=== PATIENT | male | born 1985 | race Two or more races ===

== ENCOUNTER 2018-01-08 20:22 | Emergency (ER) | payer SELFPAY ==
[2018-01-08 20:26] VITALS: BP 141/89; PULSE 85; RESP 18; TEMP 98; O2SAT 100
[2018-01-08] MEDS ORDERED: Naproxen 500 MG TAB PO STA (20:30)
--- NOTE | 2018-01-08 20:37 | ED PDOC ---
Upper Extremity Pain/Injury Time Seen by Provider: 01/08/18 20:28 Chief Complaint (Nursing): Upper Extremity Problem/Injury Chief Complaint (Provider): LEFT shoulder pain History Per: Patient History/Exam Limitations: no limitations Onset/Duration Of Symptoms: Sudden Onset (just prior to arrival) Current Symptoms Are (Timing): Still Present Additional Complaint(s): Started after his brother jumped on top of him while he was trying to tie his shoes H/o of RIGHT shoulder dislocations in the past, but never LEFT shoulder. Past Medical History Reviewed: Historical Data, Nursing Documentation, Vital Signs Vital Signs: Last Vital Signs Temp 98 F 01/08/18 20:24 Pulse 85 01/08/18 20:24 Resp 18 01/08/18 20:24 BP 141/89 01/08/18 20:24 Pulse Ox 100 01/08/18 20:24 - Medical History PMH: No Chronic Diseases - Surgical History Other surgeries: RIGHT shoulder surgeries for multiple injury/dislocations - Family History Family History: States: Unknown Family Hx - Allergies Allergies/Adverse Reactions: Allergies Allergy/AdvReac Type Severity Reaction Status Date / Time No Known Allergies Allergy Verified 01/08/18 20:24 Review of Systems Constitutional: Negative for: Weakness, Malaise Musculoskeletal: Positive for: Shoulder Pain. Negative for: Back Pain, Hand Pain Skin: Negative for: Bruising Neurological: Negative for: Weakness, Numbness, Headache Physical Exam - Reviewed Nursing Documentation Reviewed: Yes Vital Signs Reviewed: Yes - Physical Exam Appears: Positive for: Uncomfortable, In Acute Distress Head Exam: Positive for: ATRAUMATIC, NORMOCEPHALIC Skin: Positive for: Warm, Dry Extremity: Positive for: Other (LEFT shoulder: loss of bony marking of shoulder with ttp, shoulder resting inferiorly c/w RIGHT shoulder, no deltoid anesthesia) Neurologic/Psych: Positive for: Alert, Oriented. Negative for: Motor/Sensory Deficits - ECG O2 Sat by Pulse Oximetry: 100 - Progress Condition: Improved Procedures - Joint Reduction Joint Reduction Site: shoulder (L) Conscious Sedation: No Reduction Attempts: 1 Pre-Procedure NV Exam: Yes Post Joint Reduction Film: joint reduced Progress: Modified milch maneuver performed with audible click Pt with FROM after procedure and neurovascularly intact Advised shoulder immobilizer but pt refused. Disposition - Clinical Impression Clinical Impression: Shoulder dislocation Counseled Patient/Family Regarding: Diagnosis, Need For Followup - Disposition Referrals: Javier Stearns MD [Staff Provider] - Disposition: Routine/Home Disposition Time: 20:36 Condition: IMPROVED Additional Instructions: Maintain immobilizer until you follow up with orthopedist Avoid any strenuous activity with left extremity until you follow up. Follow up with Orthopedist within a week. Instructions: Shoulder Dislocation
[2018-01-08] MEDS ORDERED: Naproxen 500 MG TAB PO ONE (20:39)
== END 2018-01-08 21:00 | disposition home or self-care (01) ==
LOC: H.ER 20:22
DX: S43.004A Unspecified dislocation of right shoulder joint, initial encounter (principal); Y93.83 Activity, rough housing and horseplay